=== PATIENT | male | born 1985 | race Caucasian/White ===

== ENCOUNTER 2021-03-30 23:26 | Emergency (ER) | payer MEDICAID ==
[~2021-03-30] VITALS: Ht 167.6 cm; Wt 86.2 kg
[2021-03-31] MEDS ORDERED: ketorolac trometh. 30mg/ml inj. IM ONE (03:20)
[2021-03-31 05:45] VITALS: BP 132/88
== END 2021-03-31 05:48 | disposition home or self-care (01) ==
LOC: ER 23:27
DX: S90.821A Blister (nonthermal), right foot, initial encounter (principal); S90.822A Blister (nonthermal), left foot, initial encounter; S90.425A Blister (nonthermal), left lesser toe(s), initial encounter; S90.424A Blister (nonthermal), right lesser toe(s), initial encounter; M79.671 Pain in right foot; M79.672 Pain in left foot; R23.8 Other skin changes; X58.XXXA Exposure to other specified factors, initial encounter; Y93.89 Activity, other specified; Y92.89 Other specified places as the place of occurrence of the external cause; Y99.8 Other external cause status
CPT/HCPCS: 96372; 99283; J1885